=== PATIENT | female | born 1965 | race Caucasian/White ===

== ENCOUNTER 2016-12-20 08:15 | Outpatient (CLI) | payer OTHER ==
[2016-12-20 08:44] LABS: EOSINOPHILS % 3.2 % (0.0-6.8); MEAN CORPUSCULAR HEMOGLOBIN 30.3 pg (28.0-34.0); MEAN CORPUSCULAR VOLUME 88.5 fl (80.0-100.0); MONOCYTES % 3.7 % (0.0-11.0); NEUTROPHILS # 4.1 # k/uL (1.4-7.7)
[2016-12-20 09:18] LABS: eGFR (African) > 60; eGFR (Non-African) > 60
[2016-12-20 17:31] LABS: VITAMIN D, 25-HYDROXY 24 ng/mL (30-100)
== END 2016-12-20 08:16 ==
LOC: LAB 08:15
PROVIDERS: ATTEND Family Medicine
DX: R53.83 Other fatigue (principal)
CPT/HCPCS: 36415; 80053; 80061; 82306; 82607; 84439; 84443; 84481; 85025

== ENCOUNTER 2017-05-23 14:19 | Outpatient (CLI) | payer OTHER ==
[2017-05-23] MEDS ORDERED: PROMETHAZINE HCL 25 MG/ML VIAL ONE ×2 (14:27→14:30)
[2017-05-23] MEDS ORDERED: NORMAL SALINE 1,000 ML IV.SOLN IV ONE (14:30)
[2017-05-23] MEDS ORDERED: SALINE FLUSH 10 ML DISP.SYRIN IVF ONE (14:30)
== END 2017-05-23 14:20 ==
LOC: INF 14:19
PROVIDERS: ATTEND Family Medicine
DX: G43.909 Migraine, unspecified, not intractable, without status migrainosus (principal)
CPT/HCPCS: 96365; J2550; J7030; S1016

== ENCOUNTER 2018-02-17 08:37 | Outpatient (CLI) | payer OTHER ==
[2018-02-17] MEDS ORDERED: PROMETHAZINE HCL 25 MG/ML VIAL ONE ×2 (08:53→09:00)
[2018-02-17] MEDS ORDERED: 0.9 % SODIUM CHLORIDE 50 ML IV ONE (08:56)
[2018-02-17] MEDS ORDERED: 0.9 % SODIUM CHLORIDE 1,000 ML IV ONE (08:56)
[2018-02-17] MEDS ORDERED: SALINE FLUSH 10 ML DISP.SYRIN IVF ONE (09:00)
[2018-02-17] MEDS ORDERED: NORMAL SALINE 1,000 ML IV.SOLN IV ONE (09:00)
== END 2018-02-17 08:40 ==
LOC: INF 08:37
PROVIDERS: ATTEND Family Medicine
DX: G43.709 Chronic migraine without aura, not intractable, without status migrainosus (principal)
CPT/HCPCS: 96365; J2550; J7030; S1016

== ENCOUNTER 2018-03-26 10:24 | Emergency (ER) | payer OTHER ==
[2018-03-26] MEDS ORDERED: hydrOXYzine HCL 50 MG/ML VIAL IM ONE (10:27)
--- NOTE | 2018-03-26 10:58 | ED Physician Documentation ---
General Adult - HISTORIAN Historian: patient - HPI Stated Complaint: N/V, diarrhea since 0200 Chief Complaint: General Adult Additional Information: NVD since 1230 today. Also has bitemporal and forehead aching and throbbing headace with photosensitivity. Took po zofran at home but immediately vomited. 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 - ROS CONST: denies: fever - PAST HX Past History: other (anxiety, stress induced migraines) Allergies/Adverse Reactions: Allergies Allergy/AdvReac Type Severity Reaction Status Date / Time iodine Allergy Verified 05/23/17 14:38 penicillin G AdvReac Diarrhea Verified 05/23/17 14:38 Home Medications: Ambulatory Orders Medication Instructions Recorded Clonazepam [Klonopin] 0.5 mg PO Q8 PRN 05/23/17 Doxycycline Hyclate [Vibra-Tabs] 100 mg PO BID 05/23/17 Venlafaxine HCl [Effexor Xr] 75 mg PO DAILY 05/23/17 - SOCIAL HX Smoking History: non-smoker - FAMILY HX Family History: No - VITAL SIGNS Vital Signs: Vital Signs Temp Pulse Resp BP Pulse Ox 98.6 F 122 H 20 144/101 95 03/26/18 10:30 03/26/18 10:30 03/26/18 10:30 03/26/18 10:30 03/26/18 10:30 - REVIEWED ASSESSMENTS Nursing Assessment Reviewed: Yes Vitals Reviewed: Yes Progress - Progress Progress: 1315, Urinated. SAMAYOA and nausea gone. Home. ED Results Lab/Radiology - Orders Orders: ED Orders Category Date Time Status Place IV Lock 1T Care 03/26/18 10:44 Active Nothing Per Oral Diet 03/26/18 Lunch Ordered CBC/PLATELET/DIFF Routine Lab 03/26/18 Ordered CMP Routine Lab 03/26/18 Ordered URINALYSIS Routine Lab 03/26/18 Ordered 0.9 % Sodium Chloride [Normal Saline] 1,000 ml Med 03/26/18 10:44 Active IV Q1H Ketorolac Tromethamine [Toradol] Med 03/26/18 10:53 Once 30 mg IVP NOW ONE Ondansetron HCl/Pf [Zofran 4 mg/2 ml] Med 03/26/18 10:44 Discontinued 4 mg IVP NOW ONE diphenhydrAMINE HCL [Benadryl] Med 03/26/18 10:53 Once 25 mg IVP NOW ONE hydrOXYzine HCL [Vistaril] Med 03/26/18 10:27 Discontinued 50 mg IM NOW ONE General Adult Physical Exam - PHYSICAL EXAM GENERAL APPEARANCE: obese EENT: eye inspection normal, DION (2-3 mm), no nystagmus, other (conjugate movements) NECK: normal inspection, supple RESPIRATORY: no resp distress, breath sounds normal CVS: reg rate & rhythm, heart sounds normal, other (oropharynx dry) ABDOMEN: soft, normal bowel sounds, non-tender SKIN: warm/dry, normal color EXTREMITIES: non-tender, normal range of motion (gait and stance), no evidence of injury NEURO: CN's nml as tested, motor nml, sensation nml, cognition normal Discharge Clincal Impression: Nausea & vomiting Qualifiers: Vomiting type: unspecified Vomiting Intractability: non-intractable Qualified Code(s): R11.2 - Nausea with vomiting, unspecified Headache Qualifiers: Headache type: unspecified Headache chronicity pattern: acute headache Intr actability: not intractable Qualified Code(s): R51 - Headache Referrals: Vivi Kulkarni MD [Primary Care Provider] - 2 Days Condition: Good Disposition: 01 HOME, SELF-CARE Decision to Admit: NO Decision Time: 13:14
[2018-03-26] MEDS: 0.9 % SODIUM CHLORIDE 1,000 ML IV ONE (11:50)
[2018-03-26] MEDS: ONDANSETRON HCL/PF 4 MG/ 2ML VIAL IVP ONE (11:52)
[2018-03-26] MEDS: diphenhydrAMINE HCL 50 MG/ML VIAL IVP ONE (11:55)
[2018-03-26] MEDS: KETOROLAC TROMETHAMINE 30 MG/1ML VIAL IVP ONE (12:00)
[2018-03-26 14:00] VITALS: BP 125/64
[2018-03-27 07:16] LABS: eGFR (Non-African) > 60
[2018-03-27 07:17] LABS: BASOPHILS % 0.3 (0.0-1.5); EOSINOPHILS % 1.2 % (0.0-6.8); NEUTROPHILS # 8.3 # k/uL (1.4-7.7)
== END 2018-03-26 13:36 | disposition home or self-care (01) ==
LOC: ED 10:24
DX: R11.2 Nausea with vomiting, unspecified (principal); R51 Headache
CPT/HCPCS: 36415; 80053; 85025; 96374; 96375; 99283; 99284; J1200; J1885; J2405; J7030; S1016